=== PATIENT | female | born 1995 | race Hispanic/Latino ===

== ENCOUNTER 2017-12-05 12:55 | Emergency (ER) | payer OTHER ==
[~2017-12-05] VITALS: Ht 157.5 cm; Wt 63.6 kg
[~2017-12-05 12:55] MED LIST: LOMOTIL2.5 MG OR; MACRODANTIN100 MG PO; NO HOME MEDS; ZOFRAN ODT8 MG PO
[2017-12-05] MEDS ORDERED: NAPROSYN500 MG PO (14:56)
[2017-12-05 15:11] VITALS: BP 128/73
== END 2017-12-05 15:11 | disposition home or self-care (01) | DRG 552 ==
LOC: ED 12:55
DX: S13.9XXA Sprain of joints and ligaments of unspecified parts of neck, initial encounter (principal); X50.9XXA Other and unspecified overexertion or strenuous movements or postures, initial encounter; Y93.75 Activity, martial arts; Y92.149 Unspecified place in prison as the place of occurrence of the external cause; Y99.0 Civilian activity done for income or pay

== ENCOUNTER 2022-03-17 15:38 | Emergency (ER) | payer BC, OTHER ==
[2022-03-17] VITALS (7 sets, daily range): BP systolic 85–122; BP diastolic 49–76
[~2022-03-17] VITALS: Ht 157.5 cm; Wt 80.9 kg
[~2022-03-17 15:38] MED LIST changes: +NAPROSYN500 MG PO
[2022-03-17 16:42] LABS: URINE BILIRUBIN - DIPSTICK NEGATIVE (NEGATIVE); URINE BLOOD DIPSTICK NEGATIVE (NEGATIVE); URINE COLOR YELLOW; URINE GLUCOSE - DIPSTICK NEGATIVE (NEGATIVE); URINE KETONE NEGATIVE (NEGATIVE); URINE LEUK ESTERASE TRACE (NEGATIVE); URINE PH 7.5 (4.5-8.0); URINE PROTEIN - DIPSTICK NEGATIVE (NEG-TRACE); URINE UROBILINOGEN - DIPSTICK 0.2 E.U./dL (0.2)
[2022-03-17 16:43] LABS: URINE NITRITE - DIPSTICK NEGATIVE (Negative)
[2022-03-17] MEDS ORDERED: AMOXICILLIN500 MG PO (17:42)
== END 2022-03-17 17:46 | disposition home or self-care (01) | DRG 833 ==
LOC: ED 15:38
PROVIDERS: Family Medicine
DX: O99.513 Diseases of the respiratory system complicating pregnancy, third trimester (principal); J02.9 Acute pharyngitis, unspecified; Z3A.29 29 weeks gestation of pregnancy; Z20.822 Contact with and (suspected) exposure to COVID-19